=== PATIENT | male | born 1970 | race Hispanic/Latino ===

== ENCOUNTER 2022-01-05 12:47 | Emergency (ER) | payer BC ==
[~2022-01-05] VITALS: Ht 167.6 cm; Wt 90.7 kg
[2022-01-05 12:49] VITALS: BP 125/82
[2022-01-05] MEDS ORDERED: KETOROLAC 30MG VIAL (30MG/ML) IM ONE (15:00)
[2022-01-05] MEDS ORDERED: TRAM50TA2 PO (15:14)
[2022-01-05] MEDS ORDERED: KETOROLAC 30MG VIAL (30MG/ML) ONE (15:17)
== END 2022-01-05 15:55 | disposition home or self-care (01) ==
LOC: EDH 12:47
DX: M25.561 Pain in right knee (principal); E11.9 Type 2 diabetes mellitus without complications; W18.39XA Other fall on same level, initial encounter; Y93.89 Activity, other specified; Y92.89 Other specified places as the place of occurrence of the external cause; Y99.8 Other external cause status
CPT/HCPCS: 29505; 73562; 96372; 99284; J1885